=== PATIENT | female | born 1985 | race African-American/Black ===

== ENCOUNTER 2018-12-12 06:12 | Emergency (ER) | payer OTHER, MEDICAID ==
[~2018-12-12] VITALS: Ht 162.6 cm; Wt 65.9 kg
[2018-12-12 07:06] LABS: ABSOLUTE LYMPHOCYTES 1.2 thou/uL (0.8-5.3); ABSOLUTE MONOCYTES 0.4 thou/uL (0.0-1.2); ABSOLUTE NEUTROPHILS 4.6 thou/uL (1.6-8.1); BASOPHILS 0.6 %; EOSINOPHILS 0.6 %; HEMATOCRIT 28.6 % (37.0-47.0); HEMOGLOBIN 9.4 gm/dL (12.0-15.0); LYMPHOCYTES 19.5 %; MCHC 32.8 g/dL (28.0-37.0); MCV 85.4 fL (80.0-100.0); MONOCYTES 6.6 %; MPV 7.9 fl. (7.2-11.1); NUCLEATED RBCS 0 /100WBC; PLATELET COUNT* 227 thou/uL (150-400); POLYS 72.7 %; RBC 3.35 mil/uL (4.20-5.00); RDW-CV 19.4 % (10.5-14.5); WBC 6.3 thou/uL (4.0-11.0)
[2018-12-12 07:15] LABS: CALCIUM 8.9 mg/dL (8.5-10.1); CREATININE 0.8 mg/dL (0.6-1.3); POTASSIUM 3.7 mmol/L (3.5-5.1); TOTAL BILIRUBIN 0.1 mg/dL (<0.1-1.0); TOTAL PROTEIN 7.4 g/dL (6.4-8.2)
[2018-12-12 08:36] LABS: URINE BILIRUBIN NEGATIVE (Negative); URINE BLOOD NEGATIVE (Negative); URINE CLARITY CLEAR; URINE COLOR YELLOW; URINE GLUCOSE-RANDOM NEGATIVE (Negative); URINE KETONES NEGATIVE (Negative); URINE LEUKOCYTES-REFLEX NEGATIVE (Negative); URINE NITRITE-REFLEX NEGATIVE (Negative); URINE PROTEIN NEGATIVE (Negative); URINE UROBILINOGEN 0.2 E.U./dl (0.2-1.0)
[2018-12-12] MEDS ORDERED: HYDROCODONE-AP1 EAC6 PO (10:04)
[2018-12-12 10:26] VITALS: BP 127/78
== END 2018-12-12 10:27 | disposition home or self-care (01) ==
LOC: M.ERS 06:12
PROVIDERS: Personal Emergency Response Attendant
DX: N83.201 Unspecified ovarian cyst, right side (principal); F17.210 Nicotine dependence, cigarettes, uncomplicated; Z88.8 Allergy status to other drugs, medicaments and biological substances

== ENCOUNTER 2020-02-06 03:05 | Emergency (ER) | payer OTHER ==
[~2020-02-06] VITALS: Ht 162.6 cm; Wt 68.0 kg
[~2020-02-06 03:05] MED LIST: HYDROCODONE-AP1 EAC6 PO
[2020-02-06] MEDS ORDERED: KEFLEX500 M1 PO (04:44)
[2020-02-06] MEDS ORDERED: HYDROCODON-ACE1 EAC7 PO (04:44)
[2020-02-06 04:57] LABS: URINE BILIRUBIN NEGATIVE (Negative); URINE BLOOD NEGATIVE (Negative); URINE CLARITY CLEAR; URINE COLOR YELLOW; URINE GLUCOSE-RANDOM NEGATIVE (Negative); URINE KETONES NEGATIVE (Negative); URINE LEUKOCYTES 1+ (Negative); URINE NITRITE NEGATIVE (Negative); URINE PROTEIN TRACE (Negative); URINE SPECIFIC GRAVITY 1.025 (1.005-1.030)
[2020-02-06 05:13] VITALS: BP 122/64
[2020-02-06 05:38] LABS: BACTERIA 1-9 Few /HPF (None Seen); CASTS None Seen /LPF (None Seen); CRYSTALS None Seen /LPF (None Seen); MUCUS 4-6 Moderate strn/LPF (None Seen); SQUAMOUS 4-10 Moderate /LPF (0-3); URINE RBC 0-2 Rare /HPF (0-2); URINE WBC 6-15 Few /HPF (0-5)
== END 2020-02-06 05:13 | disposition home or self-care (01) ==
LOC: M.ERS 03:05
PROVIDERS: Personal Emergency Response Attendant
DX: L73.9 Follicular disorder, unspecified (principal); F17.210 Nicotine dependence, cigarettes, uncomplicated; Z90.710 Acquired absence of both cervix and uterus; Z88.8 Allergy status to other drugs, medicaments and biological substances

== ENCOUNTER 2020-04-01 06:17 | Emergency (ER) | payer OTHER ==
[~2020-04-01] VITALS: Ht 162.6 cm; Wt 64.4 kg
[~2020-04-01 06:17] MED LIST changes: +HYDROCODON-ACE1 EAC7 PO; +KEFLEX500 M1 PO
[2020-04-01 06:27] VITALS: BP 144/89
[2020-04-01] MEDS ORDERED: HYDROCODON-ACE1 EAC8 PO (07:01)
[2020-04-01] MEDS ORDERED: AMOXICILLIN 50500 M1 PO (07:01)
== END 2020-04-01 07:17 | disposition home or self-care (01) ==
LOC: M.ERS 06:17
DX: K01.1 Impacted teeth (principal); J45.909 Unspecified asthma, uncomplicated; F17.210 Nicotine dependence, cigarettes, uncomplicated; Z88.8 Allergy status to other drugs, medicaments and biological substances; Z90.710 Acquired absence of both cervix and uterus

== ENCOUNTER 2020-07-05 16:04 | Emergency (ER) | payer OTHER, MEDICAID ==
[~2020-07-05] VITALS: Ht 162.6 cm; Wt 63.5 kg
[~2020-07-05 16:04] MED LIST changes: +AMOXICILLIN 50500 M1 PO; +HYDROCODON-ACE1 EAC8 PO
[2020-07-05 16:14] VITALS: BP 137/74
[2020-07-05] MEDS ORDERED: ANUSOL-HC25 MG RECTAL (16:56)
[2020-07-05] MEDS ORDERED: COLACE100 MG PO (16:56)
[2020-07-05] MEDS ORDERED: PERCOCET 5-3251 EACH PO (16:56)
== END 2020-07-05 17:30 | disposition home or self-care (01) ==
LOC: M.ERS 16:04
DX: K64.5 Perianal venous thrombosis (principal); J45.909 Unspecified asthma, uncomplicated; F17.210 Nicotine dependence, cigarettes, uncomplicated; Z90.710 Acquired absence of both cervix and uterus; Z88.8 Allergy status to other drugs, medicaments and biological substances